=== PATIENT | female | born 1985 | race Caucasian/White ===

== ENCOUNTER 2018-02-13 20:05 | Emergency (ER) | payer MEDICAID ==
[~2018-02-13] VITALS: Ht 157.5 cm; Wt 54.9 kg
[2018-02-13 20:15] VITALS: BP 127/86
--- NOTE | 2018-02-13 22:00 | NUR ---
pt to er bed
[2018-02-13] MEDS ORDERED: CEPHALEXIN MONOHYDRATE 500 MG CAPSULE PO ONE ×2 (22:30→22:45)
[2018-02-13] MEDS ORDERED: SULFAMETH/TRIMETH 800/160 MG 1 UDTAB TABLET PO ONE ×2 (22:30→22:46)
== END 2018-02-13 22:51 | disposition home or self-care (01) ==
LOC: ER 20:05
DX: S40.862A Insect bite (nonvenomous) of left upper arm, initial encounter (principal); L03.114 Cellulitis of left upper limb; W57.XXXA Bitten or stung by nonvenomous insect and other nonvenomous arthropods, initial encounter; Y93.89 Activity, other specified; Y92.89 Other specified places as the place of occurrence of the external cause; Y99.8 Other external cause status
CPT/HCPCS: A4606; Z7610

== ENCOUNTER 2018-11-15 18:05 | Emergency (ER) | payer MEDICAID ==
[~2018-11-15] VITALS: Ht 152.4 cm; Wt 59.9 kg
[2018-11-15 18:15] VITALS: BP 141/99
--- NOTE | 2018-11-15 19:00 | NUR ---
PT BIBSELF C/C L SIDES CHEST PAIN, LUE PARESTHESIA SINCE TUESDAY. PT AOX4. NAD NOTED. RESP EVEN AND UNLABORED. UPPER SORBIAN SPEAKING WITH FAMILY AT BEDSIDE. WILL CONTINUE TO MONITOR.
[2018-11-15 19:17] LABS: BASOPHILS % (AUTO) 0.4 % (0.0-2.0); EOSINOPHILS % (AUTO) 2.8 % (0.0-6.0); HEMATOCRIT 39 % (33-45); HEMOGLOBIN 13.3 g/dL (11.5-14.8); LYMPHOCYTES # (AUTO) 2.3 /CMM (0.8-4.8); LYMPHOCYTES % (AUTO) 37.6 % (20.0-44.0); MEAN CORPUSCULAR HGB CONC 34 g/dl (31.0-36.0); MEAN CORPUSCULAR VOLUME 87 fL (82-100); MONOCYTES # (AUTO) 0.4 /CMM (0.1-1.30); MONOCYTES % (AUTO) 6.3 % (2.0-12.0); NEUTROPHILS # (AUTO) 3.3 /CMM (1.8-8.9); NEUTROPHILS % (AUTO) 52.9 % (43.0-81.0); PLATELET COUNT (AUTO) 296 /CMM (150-450); RED BLOOD CELL COUNT(AUTO) 4.51 MIL/uL (4.0-5.2); WHITE BLOOD COUNT (AUTO) 6.2 K/uL (4.3-11.0)
[2018-11-15 19:23] LABS: CALCIUM, SERUM 8.8 mg/dL (8.5-10.1); CARBON DIOXIDE 30 mmol/L (21-32); CHLORIDE 105 mmol/L (98-107); CREATININE 0.8 mg/dL (0.6-1.3); POTASSIUM 3.7 mmol/L (3.5-5.1); SODIUM SERUM 140 mmol/L (136-145); UREA NITROGEN, BLOOD 7 mg/dL (7-18)
[2018-11-15] MEDS ORDERED: ASPIRIN 81 MG TAB.CHEW ONE (19:28)
[2018-11-15] MEDS ORDERED: ASPIRIN 81 MG TAB.CHEW PO ONE (19:30)
[2018-11-15 19:58] LABS: GLUCOSE 86 mg/dL (74-106)
--- NOTE | 2018-11-15 20:02 | NUR ---
IV removed. Catheter intact and site benign. Pressure and 4x4 applied to site. No bleeding noted.Patient discharged to home in stable condition. Written and verbal after care instructions given. Patient verbalizes understanding of instruction. PT AMBULATORY WITH STEADY GAIT ACCOMPANIED BY FAMILY.
== END 2018-11-15 20:05 | disposition home or self-care (01) ==
LOC: ER 18:06
DX: R07.89 Other chest pain (principal); R00.2 Palpitations
CPT/HCPCS: 36415; 71045-TC; 80048-TC; 84484-TC; 84703-TC; 85025-TC

== ENCOUNTER 2018-12-18 00:38 | Emergency (ER) | payer MEDICAID ==
[~2018-12-18] VITALS: Ht 152.4 cm; Wt 59.0 kg
[2018-12-18 01:03] VITALS: BP 146/94
[2018-12-18] MEDS ORDERED: ACETAMINOPHEN ES 500 MG TABLET ONE (01:49)
--- NOTE | 2018-12-18 01:59 | NUR ---
URINE SPECIMEN OBTAINED AND SENT TO THE LAB.
[2018-12-18] MEDS ORDERED: AMOX/CLAVULANATE 875 MG TABLET PO ONE (03:00)
[2018-12-18] MEDS ORDERED: IBUPROFEN 600 MG TABLET PO ONE ×2 (03:00→03:04)
[2018-12-18] MEDS ORDERED: AMOX/CLAVULANATE 875 MG TABLET ONE (03:05)
== END 2018-12-18 03:53 | disposition home or self-care (01) ==
LOC: ER 00:40
DX: J03.90 Acute tonsillitis, unspecified (principal); R07.0 Pain in throat; Z90.89 Acquired absence of other organs
CPT/HCPCS: 36415; 84702-TC; 84703-TC